=== PATIENT | female | born 1990 | race Caucasian/White ===

== ENCOUNTER → 2020-08-20 | Outpatient (CLI) | payer OTHER | LOC: M.LAB 16:53 | PROVIDERS: ATTEND Surgery | DX: Z01.812 Encounter for preprocedural laboratory examination (principal); Z20.822 Contact with and (suspected) exposure to COVID-19; D17.20 Benign lipomatous neoplasm of skin and subcutaneous tissue of unspecified limb; R22.30 Localized swelling, mass and lump, unspecified upper limb ==